=== PATIENT | male | born 2000 | race Caucasian/White ===

== ENCOUNTER 2020-05-29 10:38 | Emergency (ER) | payer BC, SELFPAY ==
[2020-05-29 11:11] VITALS: BP 123/69; PULSE 89; RESP 18; TEMP 37.1; O2SAT 99; BMI 25.7
--- NOTE | 2020-05-29 11:23 | HMH.EDUTC ---
[facility] [place] Disposition Clinical Impression: COVID-19 Disposition: Home, Self-Care Condition on Discharge: Good Instructions: Preventing the Spread of Coronavirus Discharge Instructions Additional Instructions: Drink plenty of fluids. Take tylenol for pain or fever. Follow up with your regular doctor. GO TO THE ER FOR ANY WORSENING SYMPTOMS Referrals: Leno Turner [Primary Care Provider] - Time of Disposition: 11:25 Medical Decision Making - Medical Records Medical records reviewed: No: I reviewed the patient's medical records. - Claudio Inquiry Pt receiving controlled substance: No Vital Signs: 05/29/20 11:11 05/29/20 11:42 Temperature 98.8 F 98 F Temperature Source Oral Oral Pulse Rate 89 Pulse Rate [Radial] 89 Respiratory Rate 18 18 Blood Pressure 123/69 Blood Pressure [Right Arm] 123/69 Blood Pressure Mean [Right Arm] 87 Blood Pressure Source Automatic Cuff Blood Pressure Source [Right Arm] Automatic Cuff Blood Pressure Position Sitting Blood Pressure Position [Right Arm] Sitting 02 Sat by Pulse Oximetry 99 Oxygen Delivery Method Room Air Room Air Orders (Tests/Meds): ORDERS Category Date Time Status Covid-19 Nasal PCR Sendout [facility] 05/29/20 11:10 Received [facility] [place] HPI - General Stated complaint: Covid test Time Seen by Provider: 05/29/20 11:23 Mode of Arrival: Ambulatory Source of Information: Patient Limitations: No Limitations Description of Symptoms (Recalled from Triage Doc. by RN): covid test HEENT Symptoms (Recalled from RN notes): No Resp Symptoms (Recalled from RN notes): No Skin Symptoms (Recalled from RN notes): No MS Symptoms (Recalled from RN notes): No Functional Status (Recalled from RN notes): wnl - History of Present Illness Provider Complaint: She has had covid 19. She has not had symptoms in over 4 days. She needs a negative test to go back to work. - Related Data Home Medications Medication Instructions Recorded Confirmed No Known Home Medications 11/14/17 11/14/17 Allergies Allergy/AdvReac Type Severity Reaction Status Date / Time BEE VENOM PROTEIN (HONEY BEE) Allergy Unknown Uncoded 07/04/17 15:03 - Worker's Comp Is this a Worker's Comp case?: No [facility] History - Hepatitis A Screen Drug use history?: No High risk sexual behaviors?: No History of sexually transmitted infection?: No Currently employed?: No Childcare worker?: No Do you have indoor plumbing?: Yes Do you have electricity?: Yes Attestation statement:: This patient has been screened for Hepatitis A risk factors. I have reviewed the patient's past medical history: Yes Medical History: Denies:: Cancer, Diabetes Mellitus Type 1, Diabetes Mellitus Type 2, MRSA Amputation: No Fractures: No - Social History Smoking Status: Current every day smoker Alcohol Intake: never Occupational Status: employed ROS Obtained: Yes All systems reviewed & no additional complaints - Constitutional Constitutional: Reports system reviewed and no additional complaints, except as docu - Eyes Eyes: Reports system reviewed and no additional complaints, except as docu - ENT Ears, Nose, Mouth, and Throat: Reports system reviewed and no additional complaints, except as docu - Cardiovascular Cardiovascular: Reports system reviewed and no additional complaints, except as docu - Respiratory Respiratory: Yes system reviewed and no additional complaints, except as docu - Gastrointestinal Gastrointestingal: Reports: system reviewed and no additional complaints, except as docu Physical Exam - General General appearance: alert, in no apparent distress - Head Head exam: atraumatic, normocephalic, normal inspection - Eye Eye exam: Present: normal appearance, PERRL, EOMI - ENT ENT exam: Present: normal exam, normal oropharynx, mucous membranes moist, TM's normal bilaterally, normal external ear exam - Neck Neck exam: Present: normal inspection, full R
[2020-05-29 11:42] VITALS: BP 123/69; PULSE 89; RESP 18; TEMP 36.6; O2SAT 99
[2020-05-30 14:06] LABS: Covid-19 Nasal PCR Sendout Lex Positive
== END 2020-05-29 11:43 | disposition home or self-care (01) ==
PROVIDERS: Emergency Provider Nurse Practitioner Family; PCP Family Medicine
DX: U07.1 COVID-19 (principal)
CPT/HCPCS: 99201; U0004

== ENCOUNTER 2021-02-17 16:13 | Emergency (ER) | payer BC, SELFPAY ==
[2021-02-17 16:16] VITALS: BP 139/86; PULSE 101; RESP 18; TEMP 36.9; O2SAT 99; BMI 27.0
--- NOTE | 2021-02-17 16:40 | XR_ITS ---
PROCEDURE INFORMATION: Exam: XR Left Ankle Exam date and time: 02/17/2021 4:40 PM Age: 20 years old Clinical indication: Injury or trauma; Fall; Blunt trauma; Ankle; Left; Additional info: Trauma, fall TECHNIQUE: Imaging protocol: XR Left ankle. Views: 3 or more views. COMPARISON: No relevant prior studies available. FINDINGS: Bones/joints: Rounded calcification is noted distal to the lateral malleolus and is most likely related to secondary center of ossification or old avulsion fracture. There is no evidence of acute fracture. There is no evidence of joint malalignment or dislocation. Soft tissues: There are no soft tissue masses or fluid collections. Lateral soft tissue swelling. IMPRESSION: 1. Rounded calcification is noted distal to the lateral malleolus and is most likely related to secondary center of ossification or old avulsion fracture. 2. No evidence of acute fracture. 3. No evidence of acute dislocation.
[2021-02-17 16:42] VITALS: PULSE 98; O2SAT 98
--- NOTE | 2021-02-17 17:54 | HMH.EDGENADL ---
ED Disposition Clinical Impression: Ankle sprain and strain Disposition: Home, Self-Care Condition on Discharge: Good Instructions: Sprain Referrals: Leno Turner [Primary Care Provider] - 3 days Time of Disposition: 17:57 - Critical Care Critical Care Time: No Attestation: On 02/17/21, the high probability of a clinically significant, sudden or life threatening deterioration of the following system(s) required my full and direct attention, intervention and personal management. The time I documented below is in addition to time spent performing reported procedures but includes the following listed in this critical care notation. Medical Decision Making - Medical Records Medical records reviewed: Yes: I reviewed the patient's medical records. - Claudio Inquiry Pt receiving controlled substance: No Vital Signs: 02/17/21 16:16 02/17/21 16:42 Temperature 98.5 F Temperature Source Oral Pulse Rate 98 H Pulse Rate [Right] 101 H Respiratory Rate 18 Blood Pressure [Right Arm] 139/86 Blood Pressure Mean [Right Arm] 103 02 Sat by Pulse Oximetry 99 98 Oxygen Delivery Method Room Air - Radiology Data #1 Image(s): Ankle Image Reviewed: Yes I reviewed the patient's radiology results Preliminary Findings: Normal/NAD Medical Decision Narrative: 20yo M evaluated for left ankle pain. Patient in no acute distress on initial evaluation. X-ray completed through triage. No acute finding, question old avulsion fracture now healed. Counseled on rest, ice, compression, elevation. Ombj-icn-opbzhjc medication as needed for aches and pain. General Adult HPI - General Chief complaint: Extremity Injury, Lower Stated complaint: AO 02/17@1400 injured L ankle Time Seen by Provider: 02/17/21 17:30 Mode of Arrival: Ambulatory Limitations: No Limitations Description of Symptoms (Recalled from ER Triage Doc. by RN): pt rolled left ankle going down stairs around 1400 today. swelling to left lateral side of ankle, no obvious deformity - History of Present Illness HPI narrative: 20yo M presents the emergency department secondary to left ankle. States he tripped going down the stairs today. No other injury. Complains of swelling to his lateral malleolus. No other acute concerns at this time. - Related Data Home Medications Medication Instructions Recorded Confirmed No Known Home Medications 11/14/17 11/14/17 Allergies Allergy/AdvReac Type Severity Reaction Status Date / Time BEE VENOM PROTEIN (HONEY BEE) Allergy Unknown Uncoded 07/04/17 15:03 [facility] History - Hepatitis A Screen Drug use history?: No High risk sexual behaviors?: No History of sexually transmitted infection?: No Currently employed?: No Childcare worker?: No Do you have indoor plumbing?: Yes Do you have electricity?: Yes Attestation statement:: This patient has been screened for Hepatitis A risk factors. I have reviewed the patient's past medical history: Yes Medical History: Denies:: Cancer, Diabetes Mellitus Type 1, Diabetes Mellitus Type 2, MRSA Amputation: No Fractures: No - Social History Smoking Status: Current every day smoker Alcohol Intake: never Occupational Status: employed ROS Obtained: Yes All systems reviewed & no additional complaints - Musculoskeletal Musculoskeletal: Reports as per HPI Physical Exam - General General appearance: alert, in no apparent distress - Head Head exam: atraumatic, normocephalic, normal inspection - Eye Eye exam: Present: normal appearance - Respiratory Respiratory exam: Absent: respiratory distress - Cardiovascular Cardiovascular exam: Present: regular rate, normal rhythm - Abdominal Exam Abdominal exam: Present: soft - Extremities Exam Extremities exam: Present: other (L ankle: Swelling about the lateral malleolus. Tender to palpate bilateral. Able to move in all planes of motion. 2+ DP and PT) - Neurological Exam Neurological exam: Present:
[2021-02-17 18:10] VITALS: BP 140/77; PULSE 76; RESP 16; TEMP 36.7; O2SAT 97
== END 2021-02-17 18:11 | disposition home or self-care (01) ==
PROVIDERS: Emergency Provider Family Medicine; PCP Family Medicine
DX: S93.402A Sprain of unspecified ligament of left ankle, initial encounter (principal); W10.9XXA Fall (on) (from) unspecified stairs and steps, initial encounter; Y92.9 Unspecified place or not applicable
CPT/HCPCS: 73600; 73610; 99282

== ENCOUNTER 2023-12-19 15:51 | Emergency (ER) | payer BC, SELFPAY ==
[2023-12-19 16:00] VITALS: BP 134/87; PULSE 97; RESP 18; TEMP 36.9; O2SAT 98; BMI 27.1
--- NOTE | 2023-12-19 16:36 | ED_ITS ---
Discharge Plan Disposition Patient Disposition: Home, Self-Care Condition: Good Prescriptions Prescriptions: New ondansetron 8 mg tablet,disintegrating 8 mg PO Q8H PRN (Reason: nausea and vomiting) Qty: 7 0RF [id number] [Bromfed DM] 2-30-10 mg/5 mL syrup 10 ml PO Q4-6H PRN (Reason: cold symptoms/cough) Qty: 200 0RF Referrals Follow up/Referrals: Jean Claude Turner MD [Primary Care Provider] - See instructions Activity Restrictions/Add. Instructions Additional Instructions/Restrictions: If symptoms persist or worsen, follow up with primary care provider Clinical Impressions Clinical Impression: Gastroenteritis Upper respiratory tract infection Qualifiers: URI type: unspecified URI Qualified Code(s): J06.9 - Acute upper respiratory infection, unspecified Instructions Patient Instructions: DI for Vomiting -- Adult, DI for Viral Upper Respiratory Infection -- Adult Discharge ED Provider: Nicole Tineo [facility] General Stated complaint: Nausea,sore throat,diarrhea,congestion Mode of Arrival: Ambulatory Source of Information: Patient Limitations: No Limitations Time Seen by Provider: 12/19/23 16:35 Description of Symptoms (Recalled from Triage Doc. by RN): Pt's symptoms are nausea, vomiting, AMRO, and sore throat. HEENT Symptoms (Recalled from RN notes): Yes Resp Symptoms (Recalled from RN notes): No Skin Symptoms (Recalled from RN notes): No MS Symptoms (Recalled from RN notes): No Functional Status (Recalled from RN notes): n/a History of Present Illness Provider Complaint: Pt relates that he started with nausea and vomiting on Monday night and was up most of the night sick. He reports that he has continued to feel nauseated and now has nasal congestion, runny nose, and cough. Daughter was just diagnosed with RSV. Related Data Previous Rx's Medication Instructions Recorded [id number] 10 ml PO Q4-6H PRN cold 12/19/23 2 mg-30 mg-10 mg/5 mL oral syrup symptoms/cough #200 mL (Bromfed DM) ondansetron 8 mg disintegrating 8 mg PO Q8H PRN nausea and 12/19/23 tablet vomiting #7 tabs Allergies Allergy/AdvReac Type Severity Reaction Status Date / Time BEE VENOM PROTEIN (HONEY BEE) Allergy Unknown Uncoded 12/19/23 16:22 Worker's Comp Is this a Worker's Comp case?: No [facility] Disclaimer: The information contained in this section may have been updated after the patient was seen, as this information can be updated by other users. Social History Smoking Status: Current every day smoker alcohol intake: never current occupational status: employed Travel in the last 8 weeks: None ROS Obtained: Yes All systems reviewed & no additional complaints except as documented Constitutional Constitutional: Reports system reviewed and no additional complaints, except as documented, Reports headache(s) and Reports malaise Eyes Eyes: Reports system reviewed and no additional complaints, except as documented ENT Ears, Nose, Mouth, and Throat: Reports system reviewed and no additional complaints, except as documented, Reports headache(s), Reports nasal congestion, Reports nasal discharge, Denies odynophagia, Reports sinus pressure and Reports sore throat Cardiovascular Cardiovascular: Reports system reviewed and no additional complaints, except as documented Respiratory Respiratory: Reports system reviewed and no additional complaints, except as documented and Reports non-productive cough Gastrointestinal Gastrointestingal: Reports system reviewed and no additional complaints, except as documented; Denies odynophagia Genitourinary Male Genitourinary: Reports system reviewed and no additional complaints, except as documented Musculoskeletal Musculoskeletal: Reports system reviewed and no additional complaints, except as documented Integumentary/Breasts Skin/Breast: Reports system reviewed and no additional complaints, except as documented Neurologic Neurologic: Reports system reviewed and no additional complaints, except as documented and Reports headache(s) Endocrine Endocrine: Reports system reviewed and no additional complaints, except as documented Hematologic/Lymphatic Henatologic/Lymphatic: Reports system reviewed and no additional complaints, except as documented Allergic/Immunologic Allergic/Immunologic: Reports system reviewed and no additional complaints, except as documented Physical Exam General General appearance: alert Comment: ill appearing Head Head exam: atraumatic and normocephalic Eye Eye exam: Present normal appearance Expanded ENT Exam External ear exam: Present normal external inspection Nose exam: Present sinus tenderness (maxillary) Nasal speculum exam: Bilateral: other (clear drainage) Mouth exam: Present normal external inspection Teeth exam: Present normal inspection Throat exam: Present tonsillar erythema Neck Neck exam: Present normal inspection; Absent lymphadenopathy Chest Chest inspection: Present normal inspection and symmetric chest wall rise Respiratory Respiratory exam: Present normal lung sounds bilaterally Cardiovascular Cardiovascular exam: Present regular rate and normal rhythm Abdominal Exam Abdominal exam: Present soft and normal bowel sounds Extremities Exam Extremities exam: Present normal inspection Back Exam Back exam: Present normal inspection Neurological Exam Neurological exam: Present alert and oriented X3 Psychiatric Psychiatric exam: Present normal affect and normal mood Skin Skin exam: Present warm, dry and intact Lymphatic Lymphatic Findings: no adenopathy Medical Decision Making Claudio Inquiry Pt receiving controlled substance: No Claudio was queried for this patient: No Vital Signs: 12/19/23 16:00 Temperature 98.5 F Temperature Source Oral Pulse Rate [Right Radial] 97 H Respiratory Rate 18 Blood Pressure [Right Arm] 134/87 Blood Pressure Mean [Right Arm] 102 Blood Pressure Source [Right Arm] Automatic Cuff Blood Pressure Position [Right Arm] Sitting 02 Sat by Pulse Oximetry 98 Oxygen Delivery Method Room Air
[2023-12-19 16:54] VITALS: BP 134/87; PULSE 97; RESP 18; TEMP 36.9; O2SAT 98
== END 2023-12-19 16:54 | disposition home or self-care (01) ==
PROVIDERS: Emergency Provider Nurse Practitioner Family; PCP Family Medicine
DX: K52.9 Noninfective gastroenteritis and colitis, unspecified (principal); R11.2 Nausea with vomiting, unspecified; R05.9 Cough, unspecified; J06.9 Acute upper respiratory infection, unspecified; F17.210 Nicotine dependence, cigarettes, uncomplicated
CPT/HCPCS: 99204; 99212; G0463